=== PATIENT | female | born 1995 | race African-American/Black ===

== ENCOUNTER 2024-07-22 09:26 | Inpatient (IN) | payer MEDICAID, OTHER, SELFPAY ==
[2024-07-24 20:45] VITALS: BMI 32.2
[2024-07-24] MEDS ORDERED: Ondansetron PF 4 MG/2 ML Vial IVP PRN (20:54)
[2024-07-24] MEDS ORDERED: hydrALAZINE 20 MG/ML VIAL SLOW IVP PRN (20:54)
[2024-07-24] MEDS ORDERED: Acetaminophen 500 MG TAB PO PRN (20:54)
[2024-07-24] MEDS ORDERED: Tranexamic Acid 1,000 MG/10 ML VIAL IVP PRN (20:54)
[2024-07-24] MEDS ORDERED: HYDROcodone/Acetaminophen 5/325 mg Tablet PO PRN (20:54)
[2024-07-24] MEDS ORDERED: Diphenoxylate HCl/Atropine Tablet PO PRN (20:54)
[2024-07-24] MEDS ORDERED: Ibuprofen 800 MG TAB PO PRN (20:54)
[2024-07-24] MEDS ORDERED: Methylergonovine 0.2 MG/ML VIAL IM PRN (20:54)
[2024-07-24] MEDS ORDERED: Carboprost 250 MCG/ML AMP IM PRN (20:54)
[2024-07-24] MEDS ORDERED: Misoprostol 200 MCG TAB PR PRN (20:54)
[2024-07-24] MEDS ORDERED: Lidocaine 1% (PF) 30 ML VIAL SC PRN (20:54)
[2024-07-24] MEDS ORDERED: Promethazine HCl 25 MG/ML VIAL IM PRN (20:54)
[2024-07-24] MEDS ORDERED: Oxytocin 30 units/NS 500 ML 500 ML IV SCH ×2 (21:00)
[2024-07-24 21:36] LABS: Hematocrit 40.2 % (34.9-44.5); Mean Corpuscular HGB CONC 34.8 g/dL (32.0-36.0); Mean Corpuscular Hemoglobin 29.9 pg (27.0-33.0); Mean Corpuscular Volume 85.7 fL (81.6-98.3); Mean Platelet Volume 10.4 fL (7.4-10.4); Platelet Count 297 10x3/uL (150-450); RBC Distribution Width 14.2 % (11.5-14.5); Red Blood Cell (RBC) Count 4.69 10x6/uL (3.90-5.03); White Blood Cell (WBC) Count 10.88 10x3/uL (3.5-10.5)
[2024-07-24] MEDS: Misoprostol 100 MCG TAB VAG SCH (22:45)
[2024-07-25 01:02] LABS: HBsAg Index 0.19 S/CO (0-0.99); Hep B Surf Ag - L&D Non-Reactive S/CO (NonReactive)
[2024-07-25 01:03] LABS: Syphilis Antibody Nonreactive (Nonreactive); Syphilis Antibody Index 0.04 S/CO (<1.00 Non-Reactive)
[2024-07-25] MEDS: fentaNYL 50 mcg/mL 1 mL Vial SLOW IVP PRN (01:53)
[2024-07-25] MEDS: fentaNYL/Ropivacaine Epidural 100 ML ONE (02:41)
[2024-07-25] MEDS ORDERED: Acetaminophen 325 MG TAB PO PRN (03:28)
[2024-07-25] MEDS ORDERED: Lactated Ringer's 500 ML IV PRN (03:28)
[2024-07-25] MEDS ORDERED: diphenhydrAMINE 50 MG/ML VIAL IVP PRN (03:28)
[2024-07-25] MEDS ORDERED: Ondansetron PF 4 MG/2 ML Vial IVP PRN ×2 (03:28→20:37)
[2024-07-25] MEDS ORDERED: Naloxone HCl 0.4 mg/ml Vial IVP PRN ×2 (03:28)
[2024-07-25] MEDS ORDERED: Promethazine HCl 25 MG/ML VIAL IM PRN ×2 (03:28→20:37)
[2024-07-25] MEDS ORDERED: ePHEDrine Sulfate 50 MG/10 ML VIAL SLOW IVP PRN (03:28)
[2024-07-25] MEDS ORDERED: Moisturizing Cream (Eucerin) 113 GM JAR TOP PRN (03:28)
[2024-07-25] MEDS ORDERED: Communication Order-Pharmacy FS SCH (03:30)
[2024-07-25] MEDS: fentaNYL 2 mcg/Ropivacaine 0.2% Epidural 100 ML CADD EPIDURAL SCH (15:04)
[2024-07-25] MEDS: Oxytocin 30 units/NS 500 ML 500 ML IV SCH (17:45)
[2024-07-25] MEDS ORDERED: Terbutaline Sulfate 1 MG/ML VIAL ONE (18:00)
[2024-07-25] MEDS ORDERED: Bupivacaine HCl 0.5%/Epinephrine 1:200,000/PF 30 ml Vial ONE (18:00)
[2024-07-25] MEDS ORDERED: Bupivacaine/Epinephrine 0.25% 30 ML VIAL ONE (18:00)
[2024-07-25 18:11] LABS: Analyzer IN Cardio CS ER; Critical Notified By: s bates rrt; RapidComm Collect By cbn
[2024-07-25 18:13] LABS: Analyzer IN Cardio CS ER; Critical Notified By: S.BatesRR; RapidComm Collect By cbn
[2024-07-25] MEDS ORDERED: diphenhydrAMINE 25 MG CAP PO PRN (20:37)
[2024-07-25] MEDS ORDERED: Lanolin Ointment 7 GM TUBE TOP PRN (20:37)
[2024-07-25] MEDS ORDERED: Milk Of Magnesia 30 ML UDCUP PO PRN (20:37)
[2024-07-25] MEDS ORDERED: Bisacodyl 10 MG SUPP PR PRN (20:37)
[2024-07-25] MEDS ORDERED: hydrALAZINE 20 MG/ML VIAL SLOW IVP PRN (20:37)
[2024-07-25] MEDS: Ibuprofen 800 MG TAB PO SCH (21:31)
[2024-07-25] MEDS: Docusate 100 MG CAP PO SCH (21:31)
[2024-07-25] MEDS: HYDROcodone/Acetaminophen 5/325 mg Tablet PO PRN (21:32)
[2024-07-25] MEDS: Benzocaine-Menthol 82.5 ML CAN TOP PRN (21:35)
[2024-07-26] MEDS: Azithromycin 500 MG VIAL ONE (04:57)
[2024-07-26] MEDS: CEFAZOLIN 2 GM VIAL ONE (04:57)
[2024-07-26] MEDS: Terbutaline Sulfate 1 MG/ML VIAL SC SCH (04:58)
[2024-07-26] MEDS: Prenatal Vitamin 1 TAB PO SCH (08:30)
[2024-07-26] MEDS: Ferrous Sulfate 325 MG TAB PO SCH (08:31)
[2024-07-26] MEDS: Boostrix 0.5 ML (Tdap) VIAL (>/=7 yrs of age) IM ONE (19:25)
[2024-07-26] MEDS: fentaNYL 50 mcg/mL 1 mL Vial ONE (19:26)
[2024-07-26] MEDS: Dexmedetomidine 200 MCG/2 ML VIAL ONE (19:26)
[2024-07-26 22:28] VITALS: BP 105/60
[2024-07-27 08:40] VITALS: TEMP 97.9
== END 2024-07-27 19:33 | disposition home or self-care (01) | DRG 807 ==
LOC: MERGE 16:17 → CSHLD 07-24 20:15 → CSHPP 07-25 19:57
PROVIDERS: ADMIT Family Medicine; ATTEND Family Medicine
PROC: 10D07Z6 Extraction of Products of Conception, Vacuum, Via Natural or Artificial Opening (ICD-10-PCS; principal; 2024-07-25)
PROC: 10907ZC Drainage of Amniotic Fluid, Therapeutic from Products of Conception, Via Natural or Artificial Opening (ICD-10-PCS; 2024-07-25)
PROC: 0W8NXZZ Division of Female Perineum, External Approach (ICD-10-PCS; 2024-07-25)
DX: O48.0 Post-term pregnancy (principal); Z37.0 Single live birth; Z3A.40 40 weeks gestation of pregnancy; O76 Abnormality in fetal heart rate and rhythm complicating labor and delivery
CPT/HCPCS: 36415; 51702; 82805; 85027; 86780; 86850; 86900; 86901; 87340; J2590; J3010; J3105